=== PATIENT | male | born 1980 | race Caucasian/White ===

== ENCOUNTER 2020-01-16 17:39 | Emergency (ER) | payer OTHER ==
[~2020-01-16] VITALS: Ht 182.9 cm; Wt 99.8 kg
[~2020-01-16 17:39] MED LIST: AMOX500 PO; FEXPSEER PO; HYDACE5 PO
[2020-01-16] MEDS ORDERED: Nadolol20 MG PO (17:51)
== END 2020-01-16 19:10 | disposition home or self-care (01) ==
LOC: ER 17:39
DX: S68.121A Partial traumatic metacarpophalangeal amputation of left index finger, initial encounter (principal); S62.631B Displaced fracture of distal phalanx of left index finger, initial encounter for open fracture; W45.8XXA Other foreign body or object entering through skin, initial encounter
CPT/HCPCS: 73130; 90471; 99283-25; A9270; A9270-GY